=== PATIENT | female | born 1945 | race Hispanic/Latino ===

== ENCOUNTER 2018-01-07 10:03 | Day surgery (SDC) | payer MEDICARE ==
[2018-01-04 11:26] VITALS: BMI 23.1
[2018-01-07 10:39] LABS: BASO # 0.02 K/mm3 (0.0-2.0); BASO % 0.2 % (0.0-3.0); EOS # 0.1 (0.0-0.7); EOS % 1.7 % (1.5-5.0); HEMOGLOBIN 11.4 g/dL (12.0-16.0); LYMPH # 1.6 (1.2-3.4); LYMPH % 19.4 % (22.0-35.0); MEAN CELL VOLUME 88.8 fl (80.0-105.0); MEAN CORPUSCULAR HEMOGLOBIN 28.4 pg (25.0-35.0); MEAN PLATELET VOLUME 9.4 fl (7.0-11.0); MONO # 0.6 (0.1-0.6); MONO % 6.7 % (1.0-6.0); RBC 4.01 10^6/uL (3.5-6.1); RED CELL DISTRIBUTION WIDTH 13.8 % (11.5-14.5); WHITE BLOOD COUNT 8.3 10^3/ul (4.5-11.0)
[2018-01-07 10:48] LABS: BLOOD UREA NITROGEN 20 mg/dL (7-21); CALCIUM 9.6 mg/dL (8.4-10.5); GFR AFRICAN-AMERICAN > 60; GFR NON-AFRICAN AMERICAN > 60
[2018-01-07 10:52] LABS: PARTIAL THROMBOPLASTIN TIME 33.8 Seconds (25.1-36.5); PROTHROMBIN TIME 11.5 SECONDS (9.4-12.5)
[2018-01-07] MEDS ORDERED: Midazolam 2 MG/2 ML VIAL ONE (12:13)
[2018-01-07] MEDS ORDERED: Lidocaine 1% Inj (20ml) ONE (12:13)
[2018-01-07] MEDS ORDERED: Oxycodone/Acetaminophen 5/325 mg Tab PO PRN (12:57)
[2018-01-07] MEDS ORDERED: Sodium Chloride 0.45% 1,000 ML IV SCH (13:00)
[2018-01-07 13:54] VITALS: RESP 18; TEMP 98.1
[2018-01-07 14:49] VITALS: BP 139/70; PULSE 63; O2SAT 96
--- NOTE | 2018-01-07 18:50 | US ---
PROCEDURE: Ultrasound-guided left thyroid fine needle aspiration biopsy. CLINICAL HISTORY: Goiter with large bilateral nodules. Dominant 6 cm left thyroid nodule. Evaluate for malignancy. PHYSICIAN(S): Clay Ayala M.D. TECHNIQUE: The relative risks and indications for the procedure were explained to the patient and consent obtained. The patient was placed supine on the stretcher with the neck extended and preliminary sonography of the thyroid performed. This revealed large bilateral nodules. A 6 centimeter dominant nodules noted on the left. The neck was prepped and draped in the usual sterile fashion. Conscious sedation and monitoring were provided throughout the procedure by a nurse. 1% Xylocaine was used to anesthetize the skin and soft tissues at the access site. Three passes with a 22-gauge needle were performed under ultrasound guidance for fine needle aspiration of the 6 cm dominant nodule in the left thyroid. The slides were reviewed by pathology and deemed adequate. The patient tolerated the procedure well. IMPRESSION: 1. Ultrasound guided fine needle aspiration of a 6 cm dominant nodule in left thyroid
== END 2018-01-07 15:10 | disposition home or self-care (01) ==
LOC: SDS 10:03
PROVIDERS: ATTEND Radiology Vascular & Interventional Radiology
DX: E04.1 Nontoxic single thyroid nodule (principal); I10 Essential (primary) hypertension; F03.90 Unspecified dementia, unspecified severity, without behavioral disturbance, psychotic disturbance, mood disturbance, and anxiety; F32.89 Other specified depressive episodes; F41.9 Anxiety disorder, unspecified
CPT/HCPCS: 10022; 36415; 80048; 85025; 85610; 85730; 88173; J2250; J2405; J3010; J7030

== ENCOUNTER 2018-09-23 05:11 | Outpatient (CLI) | payer MEDICARE | END 2018-09-23 05:12 | disposition home or self-care (01) | LOC: PET-BROA 05:11 ==

== ENCOUNTER 2018-12-17 08:59 | Outpatient (CLI) | payer MEDICARE | END 2018-12-17 09:00 | disposition home or self-care (01) | LOC: RAD 08:59 ==